=== PATIENT | female | born 1965 | race Caucasian/White ===

== ENCOUNTER → 2016-11-10 | Outpatient (CLI) | payer OTHER ==
[~2016-11-10] VITALS: Ht 167.6 cm; Wt 65.9 kg
[~2016-11-10] MED LIST: ASCO10004 PO; ASPI-650 PO; CALC1CAP8 PO; CHOL20002 PO; FLEC50TA25 PO; KRIL1CAP5 PO; POTA99TA PO; magnesium PO
[2016-11-10 13:41] LABS: ASPARTATE AMINO TRANSFERASE 25 U/L (15-37); BLOOD UREA NITROGEN 19 mg/dL (7-18)
== END | disposition home or self-care (01) ==
LOC: STAR 13:12 → EDSTATUS 11-15 08:00
PROVIDERS: ATTEND Internal Medicine Cardiovascular Disease
DX: I48.91 Unspecified atrial fibrillation (principal)
CPT/HCPCS: 36415; 80053; 85025; 85610; 85730

== ENCOUNTER → 2016-11-10 | Outpatient (CLI) | payer OTHER ==
[~2016-11-10] MED LIST changes: +OMNIPAQUE 350 MG/ML, 150 ML BOTTLE ONE
== END | disposition home or self-care (01) ==
LOC: CFH 12:27
PROVIDERS: ATTEND Internal Medicine Cardiovascular Disease
DX: Z01.810 Encounter for preprocedural cardiovascular examination (principal); I48.91 Unspecified atrial fibrillation; R91.8 Other nonspecific abnormal finding of lung field; R59.1 Generalized enlarged lymph nodes
CPT/HCPCS: 71020; 75572; Q9967

== ENCOUNTER 2016-12-31 06:26 | Inpatient (IN) | payer OTHER ==
[~2016-12-31] VITALS: Ht 167.6 cm; Wt 71.3 kg
[~2016-12-31 06:26] MED LIST changes: -OMNIPAQUE 350 MG/ML, 150 ML BOTTLE ONE
[2016-12-31 07:18] VITALS: BP 110/71
[2016-12-31] MEDS ORDERED: MIDAZOLAM 1 MG/ML, 5ML ONE (07:35)
[2016-12-31] MEDS ORDERED: FENTANYL PF 250 MCG/5ML ONE (07:35)
[2016-12-31] MEDS ORDERED: SODIUM CHLORIDE 0.9% 1,000 ML IV SCH (07:35)
[2016-12-31] MEDS ORDERED: HEPARIN 1,000 UNITS/ML, 10ML ONE ×2 (07:37→09:20)
[2016-12-31] MEDS ORDERED: LIDOCAINE 2%, 20ML ONE (07:37)
[2016-12-31] MEDS ORDERED: DEXAMETHASONE 4 MG/ML, 1ML ONE (07:55)
[2016-12-31] MEDS ORDERED: ONDANSETRON 2MG/ML, 2ML ONE (07:55)
[2016-12-31] MEDS ORDERED: SUCCINYLCHOLINE 20 MG/ML, 10ML ONE (07:55)
[2016-12-31] MEDS ORDERED: PROPOFOL 10 MG/ML, 20ML ONE (07:55)
[2016-12-31] MEDS ORDERED: SODIUM CHLORIDE 0.9% 1,000 ML IV ONE (08:00)
[2016-12-31 08:02] LABS: BLOOD UREA NITROGEN 19 mg/dL (7-18)
[2016-12-31] MEDS ORDERED: BUPIVACAINE 0.25% ONE (08:24)
[2016-12-31] MEDS ORDERED: PROTAMINE SULFATE 10 MG/ML, 5ML ONE (10:20)
[2016-12-31] MEDS ORDERED: ZOLPIDEM 5MG TABLET PO PRN (11:00)
[2016-12-31] MEDS ORDERED: HYDROmorphone 1 MG/ML, 1ML IV PRN (11:30)
[2016-12-31] MEDS ORDERED: MIDAZOLAM 1 MG/ML, 2ML IV PRN (11:30)
[2016-12-31] MEDS ORDERED: FENTANYL PF 100 MCG/2ML IV PRN (11:30)
[2016-12-31] MEDS ORDERED: PROMETHAZINE 25 MG/ML, 1ML IV PRN (11:30)
[2016-12-31] MEDS ORDERED: ACETAMINOPHEN 325 MG TABLET PO PRN (11:30)
[2016-12-31] MEDS ORDERED: ONDANSETRON 2MG/ML, 2ML IVPush PRN (11:30)
[2016-12-31] MEDS ORDERED: OXYcodone 5 MG/5 ML ORAL.SOL UDC PO PRN (11:30)
[2016-12-31] MEDS: APIXABAN 5 MG TABLET PO SCH ×2 (11:58→22:50)
[2016-12-31 12:25] VITALS: BP 90/59
[2016-12-31 12:35] VITALS: BP 90/56
[2016-12-31] MEDS: ACETAMINOPHEN 325 MG TABLET PO PRN ×2 (12:58→18:40)
[2016-12-31 19:00] VITALS: BP 106/71
[2016-12-31 20:45] VITALS: BP 99/66
[2016-12-31] MEDS ORDERED: ONDANSETRON 2MG/ML, 2ML IVPush ONE (22:30)
[2016-12-31] MEDS ORDERED: OXYcodone/APAP 5/325MG TABLET PO ONE (22:30)
[2016-12-31] MEDS: OMEGA-3/FISH OIL CAPSULE PO SCH (22:50)
[2016-12-31] MEDS: FLECAINIDE 50MG TABLET PO SCH (22:50)
[2016-12-31] MEDS: CALCIUM/VITAMIN D3 250-125 TABLET PO SCH (22:50)
[2017-01-01 03:00] VITALS: BP 105/65
[2017-01-01 08:20] VITALS: BP 120/76
[2017-01-01] MEDS ORDERED: KETOROLAC 30 MG/1 ML IVPush ONE (09:00)
[2017-01-01] MEDS ORDERED: ASPIRIN 325 MG TABLET EC PO SCH (09:00)
[2017-01-01] MEDS ORDERED: SODIUM CHLORIDE 0.9% 1,000 ML IV ONE ×2 (09:00)
[2017-01-01] MEDS ORDERED: MAGNESIUM OXIDE 400 MG TABLET PO SCH (09:00)
[2017-01-01] MEDS ORDERED: PROMETHAZINE 25 MG/ML, 1ML IM ONE (09:00)
[2017-01-01] MEDS: TEMPLATE NON-FORMULARY MED. (Potassium Gluconate** 99 MG) HOMEMEDPO SCH (09:00)
[2017-01-01] MEDS ORDERED: PROMETHAZINE 12.5 MG SUPP PR ONE (09:00)
[2017-01-01] MEDS: FLECAINIDE 50MG TABLET PO SCH ×2 (10:35→21:50)
[2017-01-01] MEDS: OMEGA-3/FISH OIL CAPSULE PO SCH (10:35)
[2017-01-01] MEDS: CALCIUM/VITAMIN D3 250-125 TABLET PO SCH (10:36)
[2017-01-01] MEDS: APIXABAN 5 MG TABLET PO SCH ×2 (10:36→21:50)
[2017-01-01] MEDS: ASCORBIC ACID 500 MG TABLET PO SCH (10:36)
[2017-01-01] MEDS: CHOLECALCIFEROL 1,000 UNIT TABLET PO SCH (10:36)
[2017-01-01] MEDS ORDERED: ONDANSETRON 2MG/ML, 2ML IVPush PRN (11:00)
[2017-01-01] MEDS: MAGNESIUM OXIDE 400 MG TABLET PO SCH (11:45)
[2017-01-01] MEDS: BUTALB/APAP/CAFFEINE 50MG/325MG/40MG PO PRN (11:45)
[2017-01-01 14:04] VITALS: BP 123/81
[2017-01-01 19:00] VITALS: BP 111/75
[2017-01-01 21:47] VITALS: BP 114/79
[2017-01-01] MEDS ORDERED: LABETALOL 5MG/ML, 20ML IVPush ONE (22:30)
[2017-01-02] MEDS: BUTALB/APAP/CAFFEINE 50MG/325MG/40MG PO PRN (00:03)
[2017-01-02 04:22] VITALS: BP 115/74
[2017-01-02 08:52] VITALS: BP 109/75
[2017-01-02] MEDS: OMEGA-3/FISH OIL CAPSULE PO SCH (09:00)
[2017-01-02] MEDS: TEMPLATE NON-FORMULARY MED. (Potassium Gluconate** 99 MG) HOMEMEDPO SCH (09:00)
[2017-01-02] MEDS ORDERED: MAGNESIUM OXIDE 400 MG TABLET PO SCH (09:00)
[2017-01-02] MEDS: ASCORBIC ACID 500 MG TABLET PO SCH (09:08)
[2017-01-02] MEDS: CHOLECALCIFEROL 1,000 UNIT TABLET PO SCH (09:08)
[2017-01-02] MEDS: CALCIUM/VITAMIN D3 250-125 TABLET PO SCH (09:08)
[2017-01-02] MEDS: FLECAINIDE 50MG TABLET PO SCH (09:09)
[2017-01-02] MEDS: MAGNESIUM OXIDE 400 MG TABLET PO SCH (09:09)
[2017-01-02] MEDS: APIXABAN 5 MG TABLET PO SCH (09:09)
[2017-01-02] MEDS ORDERED: APIX5TAB PO (09:59)
[2017-01-02] MEDS ORDERED: METO50TA4 PO (10:00)
[2017-01-02] MEDS ORDERED: FLEC100T PO (10:00)
[2017-01-02] MEDS ORDERED: BUTA-177 PO (10:00)
[2017-01-02] MEDS ORDERED: FLECAINIDE 50MG TABLET PO SCH (21:00)
== END 2017-01-02 13:15 | disposition home or self-care (01) | DRG 274 ==
LOC: CACL 06:26 → ORIP 10:48 → 5SO 12:25 → OBSVTOIN 01-01 10:35
PROVIDERS: ADMIT Internal Medicine Cardiovascular Disease; ATTEND Internal Medicine Cardiovascular Disease
PROC: 02K83ZZ Map Conduction Mechanism, Percutaneous Approach (ICD-10-PCS; 2016-12-31)
PROC: 4A023FZ Measurement of Cardiac Rhythm, Percutaneous Approach (ICD-10-PCS; 2016-12-31)
PROC: 4A0234Z Measurement of Cardiac Electrical Activity, Percutaneous Approach (ICD-10-PCS; 2016-12-31)
PROC: B246ZZ4 Ultrasonography of Right and Left Heart, Transesophageal (ICD-10-PCS; 2016-12-31)
PROC: 02583ZZ Destruction of Conduction Mechanism, Percutaneous Approach (ICD-10-PCS; principal; 2016-12-31 08:00)
DX: I48.0 Paroxysmal atrial fibrillation (principal); D68.69 Other thrombophilia; I48.92 Unspecified atrial flutter; I95.9 Hypotension, unspecified; G43.909 Migraine, unspecified, not intractable, without status migrainosus; Z87.891 Personal history of nicotine dependence
CPT/HCPCS: 36415; 80048; 85025; 85347; 85610; 85730; 93306; 93312; 93321; 93325; 93613; 93656; 93662; C1732; C1766; C1893; C1894; G0378; J1100; J1644; J1885; J2250; J2405; J2704; J2720; J3010; J3490; C1730; C1759; J0330; J7030

== ENCOUNTER → 2017-03-11 | Outpatient (CLI) | payer OTHER ==
[~2017-03-11] MED LIST changes: +APIX5TAB PO; +BUTA-177 PO; +FLEC100T PO; +METO50TA4 PO; -POTA99TA PO; +POTA99TA2 PO
== END | disposition home or self-care (01) ==
LOC: CFH 11:02
PROVIDERS: ATTEND Internal Medicine
DX: R91.8 Other nonspecific abnormal finding of lung field (principal)
CPT/HCPCS: 36415

== ENCOUNTER → 2018-01-04 | Outpatient (CLI) | payer OTHER | END | disposition home or self-care (01) | LOC: RAD 09:45 | PROVIDERS: ATTEND Internal Medicine | DX: R91.1 Solitary pulmonary nodule (principal) | CPT/HCPCS: 71250 ==